=== PATIENT | female | born 1985 | race Hispanic/Latino ===

== ENCOUNTER 2018-04-11 17:37 | Outpatient (CLI) | payer BC ==
--- NOTE | 2018-04-11 18:14 | RAD ---
FRONTAL AND LATERAL IMAGING CHEST: Date: 04-11-18 Comparison: None. History: Cough and congestion for one month. FINDINGS: No pneumothorax, pleural fluid, focal consolidation or alveolar edema. Heart and mediastinal contours are unremarkable. IMPRESSION: No acute findings. POS: [facility]
== END 2018-04-11 17:38 | disposition home or self-care (01) ==
LOC: SCSRAD 17:37
PROVIDERS: ATTEND Physician Assistant
DX: J20.8 Acute bronchitis due to other specified organisms (principal)
CPT/HCPCS: 71046